=== PATIENT | female | born 1995 | race Hispanic/Latino ===

== ENCOUNTER 2021-11-26 10:30 | Emergency (ER) | payer SELFPAY ==
[2021-11-26 10:37] VITALS: BP 150/92; PULSE 70; RESP 18; TEMP 36.4; O2SAT 100
[2021-11-26 10:46] LABS: Glucose Point of Care 284 mg/dl (65-105)
--- NOTE | 2021-11-26 11:59 | PC.NURSE ---
EDP at bedside to assess pt.
--- NOTE | 2021-11-26 12:06 | ED.RECABL ---
HPI - Recheck/Abnormal Lab/Rx General Chief Complaint: Recheck/Abnormal Lab/Rx Stated Complaint: sent by PCP because A1C is high Time Seen by Provider: 11/26/21 11:04 History of Present Illness HPI narrative: 26-year-old female with a history of PCOS presents to the emergency room from her [employer]CRAFT MANAGER's office for further evaluation of elevated A1c. Patient states she was found to have an A1c of 11, and was told by her AIRCRAFT MANAGER that she could go into a diabetic coma at any minute. Patient denies polyuria or polydipsia. States that she was on metformin for PCOS up until 2 months ago when she abruptly stopped. No other complaints at this time Related Data Allergies Allergy/AdvReac Type Severity Reaction Status Date / Time No Known Allergies Allergy Verified 11/26/21 11:44 Review of Systems Review of Systems: CONSTITUTIONAL: Denies fever, chills, or sweats. EYES: Denies visual changes, redness, or discharge. ENT: Denies rhinorrhea, congestion, sore throat, or otalgia. CARDIOVASCULAR: Denies chest pain, palpitations, or edema. RESPIRATORY: Denies cough or dyspnea. GASTROINTESTINAL: Denies abdominal pain, nausea, vomiting, or diarrhea. GENITOURINARY: Denies dysuria or hematuria. SKIN: Denies rash or itching. MUSCULOSKELETAL: Denies back pain, joint pain, or myalgia. NEUROLOGIC: Denies headache, numbness, dizziness, or weakness. PSYCHIATRIC: Denies anxiety or depression. Exam Narrative: GENERAL: Well-appearing, well-nourished, no physical limitations, and in no acute distress. HEAD: Normocephalic, atraumatic. EYES: Conjunctivae normal, PERRLA and EOMI. CHEST: Clear to auscultation. No respiratory distress. No wheezes rales or rhonchi. No tenderness. HEART: Regular rate and rhythm. No murmur heard. Normal peripheral pulses. ABDOMEN: Soft, nontender, nondistended, normal active bowel sounds. EXTREMITIES: Normal range of motion. No edema. No clubbing or cyanosis SKIN: Warm, dry, no rash. No noted wounds NEURO: No focal deficits. Alert and oriented x3. MAEW. CN's II-XI intact bilaterally, normal gait PSYCH: Cooperative. Normal mood and affect. Course Vital Signs Vital signs: Vital Signs Temperature 36.4 C L 09/22/22 10:37 Pulse Rate 70 11/26/21 10:37 Respiratory Rate 18 11/26/21 10:37 Blood Pressure 150/92 H 11/26/21 10:37 Pulse Oximetry 100 11/26/21 10:37 Oxygen Delivery Room Air 11/26/21 10:37 Temperature 36.4 C L 11/26/21 10:37 Pulse Rate 70 11/26/21 10:37 Respiratory Rate 18 11/26/21 10:37 Blood Pressure 150/92 H 11/26/21 10:37 Pulse Oximetry 100 11/26/21 10:37 Oxygen Delivery Room Air 11/26/21 10:37 MDM - Recheck/Abnormal Lab/Rx Lab Data Result diagrams: 11/26/21 12:29 11/26/21 12:29 Labs: Lab Results 11/26/21 11/26/21 11/26/21 Range/Units 10:44 12:29 12:29 WBC 8.6 (4.5-10.0) K/mm3 RBC 4.86 (4.2-5.4) M/mm3 Hgb 13.6 (12.0-15.0) g/dL Hct 41.0 (37.0-47.0) % MCV 84.4 (80-100) fl MCH 28.0 (26-34) pg MCHC 33.2 (32-36) g/dl RDW 12.5 (11.5-14.5) % Plt Count 363 (150-375) k/mm3 MPV 9.3 (7.4-10.4) fl Immature Gran % (Auto) 0.3 (0-0.5) % Neut % (Auto) 62.3 (45.5-73.1) % Lymph % (Auto) 31.0 (18.3-44.2) % [place] % (Auto) 4.4 (2.6-8.5) % Eos % (Auto) 1.5 (0-4.4) % Baso % (Auto) 0.5 (0.2-1.2) % Lymph # (Auto) 2.68 (0.9-3.2) K/mm3 [place] # (Auto) 0.4 (0.1-0.6) K/mm3 Eos # (Auto) 0.1 (0-0.3) K/mm3 Baso # (Auto) 0.0 (0.0-0.1) K/mm3 Abs Immat Gran (auto) 0.03 (0.00-0.031) K/mm3 Absolute Neuts (auto) 5.4 (1.3-6.7) K/mm3 Absolute Nucleated RBC 0.0 (0.0-0.012) K/mm3 Nucleated RBC % 0.0 (0.0-0.2) % Sodium (137-145) mmol/L Potassium (3.4-5.0) mmol/L Chloride (98-107) mmol/L Carbon Dioxide (22-30) mmol/L Anion Gap (8-16) mmol/L BUN (7-17) mg/dL Creatinine (0.7-1.0) mg/dL Estim Creat Clear Calc ml/min Est
[2021-11-26] MEDS: SODIUM CHLORIDE 0.9% IV 1,000 ML 999 ML IV CONT (12:51)
[2021-11-26 12:57] LABS: Alanine Aminotransferase 28 U/L (6-35); Albumin Level 4.3 g/dL (3.5-5.1); Alkaline Phosphatase 77 U/L (38-126); Anion Gap 10 mmol/L (8-16); Aspartate Amino Transferase 25 U/L (14-36); Bilirubin,Total 0.7 mg/dL (0.2-1.3); Blood Urea Nitrogen 14 mg/dL (7-17); Calcium 8.9 mg/dL (8.4-10.2); Carbon Dioxide 23 mmol/L (22-30); Chloride 100 mmol/L (98-107); Estimated CRCL calculation 188 ml/min; Estimated Glomerular Filt Rate > 60; Glucose 264 mg/dL (65-110); Potassium 4.2 mmol/L (3.4-5.0); Sodium 133 mmol/L (137-145)
[2021-11-26 13:17] LABS: Basophils Percent Auto 0.5 % (0.2-1.2); Eosinophils Absolute Auto 0.1 K/mm3 (0-0.3); Eosinophils Percent Auto 1.5 % (0-4.4); Hemoglobin 13.6 g/dL (12.0-15.0); Immature Granulocyte Absolute 0.03 K/mm3 (0.00-0.031); Immature Granulocyte Percent A 0.3 % (0-0.5); Lymphocytes Absolute Auto 2.68 K/mm3 (0.9-3.2); Mean Corpuscular HGB Conc 33.2 g/dl (32-36); Mean Corpuscular Volume 84.4 fl (80-100); Mean Platelet Volume 9.3 fl (7.4-10.4); Monocytes Absolute Auto 0.4 K/mm3 (0.1-0.6); Monocytes Percent Auto 4.4 % (2.6-8.5); Neutrophils Absolute Auto 5.4 K/mm3 (1.3-6.7); Neutrophils Percent Auto 62.3 % (45.5-73.1); Platelet Count Result 363 k/mm3 (150-375); Red Blood Count 4.86 M/mm3 (4.2-5.4); Red Cell Distribution Width 12.5 % (11.5-14.5); White Blood Count 8.6 K/mm3 (4.5-10.0)
[2021-11-26 13:24] LABS: Mucus Urine Rare /lpf; RBC Urine 21-50 /hpf (0-2); Squamous Epithelial Cell Urine Moderate /hpf (Few)
[2021-11-26 13:25] LABS: Add Urine Microscopic? YES; Appearance Urine Cloudy (Clear); Bilirubin Urine Negative (Negative); Blood Urine Negative (Negative); Color Urine Yellow (Yellow); Glucose Urine UA 2+ mg/dL (Negative); Ketones Urine 2+ mg/dL (Negative); Leukocyte Esterase Ur Negative LEU/UL (Negative); Nitrate Urine Negative (Negative); Protein Urine Negative (Negative); Urobilinogen Urine 0.2 mg/dL (<2.0); pH Urine 5.5 (5.0-9.0)
[2021-11-26 13:26] LABS: Bacteria Urine Trace /hpf
[2021-11-26 13:41] LABS: Hemoglobin A1C 10.8 % (<5.7)
[2021-11-26 14:08] VITALS: BP 135/84; PULSE 59; RESP 16; TEMP 36.9; O2SAT 100
== END 2021-11-26 14:10 | disposition home or self-care (01) ==
PROVIDERS: Emergency Provider Nurse Practitioner Family; PCP Nurse Practitioner
DX: E11.65 Type 2 diabetes mellitus with hyperglycemia (principal); E28.2 Polycystic ovarian syndrome
CPT/HCPCS: 36415; 80053; 81001; 82948; 83036; 84443; 85025; 87077; 87086; 87088; 96360; 99283; J7030

== ENCOUNTER 2022-04-15 16:42 | Outpatient (CLI) | payer SELFPAY | END 2022-04-15 16:43 | disposition home or self-care (01) | LOC: ANHLAB 16:45 | PROVIDERS: PCP Nurse Practitioner; Visit Provider Obstetrics & Gynecology | DX: O26.859 Spotting complicating pregnancy, unspecified trimester (principal); Z3A.00 Weeks of gestation of pregnancy not specified | CPT/HCPCS: 36415; 85461; 86850; 86900; 86901 ==

== ENCOUNTER 2022-06-09 11:50 | Outpatient (CLI) | payer SELFPAY ==
--- NOTE | 2022-06-09 | ECG_ITS ---
Measurements Intervals Vincent Rate: 75 P: 26 NV: 169 QRS: 60 QRSD: 86 T: -5 QT: 405 QTc: 455 Interpretive Statements SINUS RHYTHM NONSPECIFIC T-WAVE ABNORMALITY ABNORMAL ECG NO PREVIOUS ECG AVAILABLE FOR COMPARISON Electronically Signed On 06-09-2022 13:53:57 CDT by Valentin Hernandez M.D.
== END 2022-06-09 11:51 | disposition home or self-care (01) ==
LOC: ANHLAB 11:56 → ANHCARD 11:59
PROVIDERS: PCP Nurse Practitioner
DX: O24.119 Pre-existing type 2 diabetes mellitus, in pregnancy, unspecified trimester (principal); Z3A.00 Weeks of gestation of pregnancy not specified; R94.31 Abnormal electrocardiogram [ECG] [EKG]
CPT/HCPCS: 93005

== ENCOUNTER 2022-06-28 14:30 | Outpatient (RCR) | payer SELFPAY ==
[2022-05-24 02:10] VITALS: BMI 37.9
[2022-06-14 14:30] VITALS: BMI 37.5
[2022-06-14 14:35] VITALS: BMI 37.5
[2022-06-28 14:23] VITALS: BMI 38.2
[2022-06-28 14:24] VITALS: BMI 38.2
== END 2022-06-28 16:06 | disposition home or self-care (01) ==
LOC: ANHDMC 14:30
PROVIDERS: PCP Nurse Practitioner
DX: O24.112 Pre-existing type 2 diabetes mellitus, in pregnancy, second trimester (principal); Z3A.00 Weeks of gestation of pregnancy not specified; Z71.3 Dietary counseling and surveillance
CPT/HCPCS: 97802; 97803

== ENCOUNTER 2022-10-27 12:26 | Outpatient (CLI) | payer OTHER, SELFPAY ==
[2022-10-27] VITALS (40 sets, daily range): BP systolic 111–133; BP diastolic 57–88; PULSE 62–120; O2SAT 99–100; BMI 43.1
[2022-10-27 13:07] LABS: Basophils Percent Auto 0.2 % (0.2-1.2); Eosinophils Absolute Auto 0.1 K/mm3 (0-0.3); Eosinophils Percent Auto 0.9 % (0-4.4); Hematocrit 31.2 % (37.0-47.0); Immature Granulocyte Absolute 0.05 K/mm3 (0.00-0.031); Immature Granulocyte Percent A 0.4 % (0-0.5); Lymphocytes Absolute Auto 1.94 K/mm3 (0.9-3.2); Lymphocytes Percent Auto 17.2 % (18.3-44.2); Mean Corpuscular HGB Conc 32.1 g/dl (32-36); Mean Corpuscular Hemoglobin 26.7 pg (26-34); Mean Corpuscular Volume 83.4 fl (80-100); Mean Platelet Volume 9.8 fl (7.4-10.4); Monocytes Absolute Auto 0.5 K/mm3 (0.1-0.6); Monocytes Percent Auto 4.6 % (2.6-8.5); Neutrophils Absolute Auto 8.7 K/mm3 (1.3-6.7); Neutrophils Percent Auto 76.7 % (45.5-73.1); Platelet Count Result 411 k/mm3 (150-375); Red Blood Count 3.74 M/mm3 (4.2-5.4); Red Cell Distribution Width 13.1 % (11.5-14.5); White Blood Count 11.3 K/mm3 (4.5-10.0)
[2022-10-27 13:18] LABS: Alanine Aminotransferase 18 U/L (6-35); Albumin Level 3.2 g/dL (3.5-5.1); Alkaline Phosphatase 164 U/L (38-126); Anion Gap 4 mmol/L (8-16); Aspartate Amino Transferase 24 U/L (14-36); Bilirubin,Total 0.2 mg/dL (0.2-1.3); Blood Urea Nitrogen 17 mg/dL (7-17); Calcium 8.7 mg/dL (8.4-10.2); Carbon Dioxide 18 mmol/L (22-30); Chloride 108 mmol/L (98-107); Estimated CRCL calculation 172 ml/min; Estimated Glomerular Filt Rate > 60; Glucose 97 mg/dL (65-110); Potassium 4.3 mmol/L (3.4-5.0); Sodium 130 mmol/L (137-145); Uric Acid 6.1 mg/dL (2.5-7.5)
[2022-10-27 13:22] LABS: Appearance Urine Turbid (Clear); Bacteria Urine 4+ /hpf; Bilirubin Urine Negative (Negative); Blood Urine Negative (Negative); Color Urine Yellow (Yellow); Glucose Urine UA Negative (Negative); Granular Casts Urine Present /lpf; Ketones Urine Negative (Negative); Leukocyte Esterase Ur 1+ LEU/UL (NEGATIVE); Nitrate Urine Negative (Negative); Protein Urine 1+ mg/dL (Negative); RBC Urine 0-2 /hpf (0-2); Specific Grav Ur 1.019 (1.001-1.035); Squamous Epithelial Cell Urine Many /hpf (Few); WBC Urine 51-100 /hpf (0-3); pH Urine 6.5 (5.0-9.0)
[2022-10-27 13:25] LABS: Add Urine Microscopic? YES
[2022-10-27 14:44] LABS: Total Protein Urine Random 11 mg/dL; Ur Ttl Prot Creatinine Ratio 0.12 mg/mg (0-0.20)
--- NOTE | 2022-10-27 14:55 | PC.NURSE ---
Jaydon OLIVARESM informed of reactive NST, BP's, and lab results. OK to discharge to home to do 24 hr urine collection for TP. Office will call with date/orders for induction after they check with Dr. Rajput what day he is available.
--- NOTE | 2022-10-27 15:05 | PC.NURSE ---
Dr. Rajput's office called back with date and orders for IOL on 10/31/22 at 1700. Pt to keep office appointment tomorrow to have GBS culture obtained.
[2022-10-27 15:42] LABS: Glucose Point of Care 119 mg/dl (65-105)
== END 2022-10-27 15:38 | disposition home or self-care (01) ==
LOC: ANHOBOP 12:31 → ANHOBPP 12:31
PROVIDERS: PCP Emergency Medicine; Visit Provider Obstetrics & Gynecology
DX: O13.9 Gestational [pregnancy-induced] hypertension without significant proteinuria, unspecified trimester (principal)
CPT/HCPCS: 36415; 59025; 80053; 81001; 82570; 82948; 84156; 84550; 85025; 87086; 87088; 99199

== ENCOUNTER 2022-10-28 18:10 | Outpatient (NON) | payer OTHER, SELFPAY ==
[2022-10-28 19:20] LABS: Collection Time Urine 24 HOURS
[2022-10-28 19:22] LABS: Patient Weight 292 Lbs; Total Volume 24 Hour Urine 2550 ml
[2022-10-28 19:32] LABS: Creatinine Urine 68.2 mg/dL
[2022-10-30 06:46] LABS: Specific Gravity Ur 1.015
[2022-10-30 06:51] LABS: Total Protein Urine 24 Hr 178 mg/24hr (28-141); Total Protein Urine Random 7 mg/dL
== END 2022-10-28 18:11 | disposition home or self-care (01) ==
LOC: ANHOBOP 18:21
PROVIDERS: PCP Emergency Medicine; Visit Provider Obstetrics & Gynecology
DX: Z34.90 Encounter for supervision of normal pregnancy, unspecified, unspecified trimester (principal); Z3A.00 Weeks of gestation of pregnancy not specified
CPT/HCPCS: 81050; 82575; 84156

== ENCOUNTER 2022-10-31 16:44 | Inpatient (IN) | payer OTHER, SELFPAY ==
[2022-10-31] VITALS (11 sets, daily range): BP systolic 111–135; BP diastolic 64–85; PULSE 63–84; TEMP 36.4–36.9; BMI 43.2
--- NOTE | 2022-10-31 17:10 | LDADM ---
This patient, Rose Marie, was admitted to Labor/Delivery/Recovery 106 on 10/31/22 at 16:44. Plans for labor, pain management and were discussed with patient. Patient/family oriented to hospital policies and general routines including ID bracelet, bed and alarms, visiting hours, pain management, procedures, bathroom and other care routines, personal items, smoking policy, room service/diet and guest tray routines, security routines, and visiting hours. Patient/Family are encouraged to report perceived risks to care and to ask questions if they do not understand what they are told or what they should do. See OBIX for further documentation.
[2022-10-31 17:36] LABS: Basophils Percent Auto 0.4 % (0.2-1.2); Eosinophils Absolute Auto 0.1 K/mm3 (0-0.3); Eosinophils Percent Auto 1.3 % (0-4.4); Hematocrit 29.6 % (37.0-47.0); Hemoglobin 9.5 g/dL (12.0-15.0); Immature Granulocyte Absolute 0.06 K/mm3 (0.00-0.031); Immature Granulocyte Percent A 0.5 % (0-0.5); Lymphocytes Absolute Auto 2.25 K/mm3 (0.9-3.2); Lymphocytes Percent Auto 20.4 % (18.3-44.2); Mean Corpuscular HGB Conc 32.1 g/dl (32-36); Mean Corpuscular Hemoglobin 26.3 pg (26-34); Monocytes Absolute Auto 0.6 K/mm3 (0.1-0.6); Monocytes Percent Auto 5.2 % (2.6-8.5); Neutrophils Percent Auto 72.2 % (45.5-73.1); Platelet Count Result 408 k/mm3 (150-375); Red Blood Count 3.61 M/mm3 (4.2-5.4)
[2022-10-31] MEDS: DINOPROSTONE 10 MG VAG INSERT VAGINAL (17:42)
[2022-10-31 17:56] LABS: Glucose Point of Care 118 mg/dl (65-105)
[2022-10-31] MEDS: INSULIN HUMAN NPH (*BKC) 100 UNITS/ML 85 UNITS SUB-Q (21:09)
[2022-10-31 21:17] LABS: Glucose Point of Care 136 mg/dl (65-105)
[2022-11-01] VITALS (39 sets, daily range): BP systolic 105–150; BP diastolic 66–130; PULSE 63–96; TEMP 36.1–36.6
--- NOTE | 2022-11-01 01:50 | WPDANESEPP ---
Anes - Eval Pre Procedure Procedure: Labor epidural Date/Time: 11/01/22 01:50 Surgeon: Labor epidural Preop Diagnosis: Abdominal pain with contractions Pre Op Diagnosis: IOL Patient Data Age: 27 Gender: F Height: 1.75 m Weight: 133 kg Last Vital Signs Temp 97.8 F 11/01/22 00:48 Pulse 63 11/01/22 00:49 BP 113/69 11/01/22 00:49 O2 Del Method Room Air 10/31/22 17:09 Allergies Allergy/AdvReac Type Severity Reaction Status Date / Time No Known Allergies Allergy Verified 10/31/22 17:19 Home Medications Medication Instructions Recorded Confirmed Type aspirin 81 mg tablet 81 mg PO DAILY 10/22/22 10/31/22 History insulin lispro 100 unit/mL 32 unit subcut QACBREAK 10/22/22 10/31/22 History subcutaneous pen vit#24-iron amino acid 1 tablet PO DAILY 10/22/22 10/31/22 History chelat-folic acid 30 mg-975 mcg tablet insulin NPH isoph U-100 human 100 56 unit subcut QACBREAK 10/27/22 10/31/22 History unit/mL (3 mL) subcutaneous pen insulin NPH isoph U-100 human 100 85 unit subcut HS 10/27/22 10/31/22 History unit/mL (3 mL) subcutaneous pen insulin lispro 100 unit/mL 36 unit subcut QACLUNCH 10/27/22 10/31/22 History subcutaneous pen insulin lispro 100 unit/mL 72 unit subcut QACDINNER 10/27/22 10/31/22 History subcutaneous pen Laboratory Tests 10/31/22 10/31/22 10/31/22 17:27 17:53 21:07 WBC 11.0 H K/mm3 (4.5-10.0) RBC 3.61 L M/mm3 (4.2-5.4) Hgb 9.5 L g/dL (12.0-15.0) Hct 29.6 L % (37.0-47.0) MCV 82.0 fl (80-100) MCH 26.3 pg (26-34) MCHC 32.1 g/dl (32-36) RDW 13.0 % (11.5-14.5) Plt Count 408 H k/mm3 (150-375) MPV 10.0 fl (7.4-10.4) Immature Gran % (Auto) 0.5 % (0-0.5) Neut % (Auto) 72.2 % (45.5-73.1) Lymph % (Auto) 20.4 % (18.3-44.2) [place] % (Auto) 5.2 % (2.6-8.5) Eos % (Auto) 1.3 % (0-4.4) Baso % (Auto) 0.4 % (0.2-1.2) Lymph # (Auto) 2.25 K/mm3 (0.9-3.2) [place] # (Auto) 0.6 K/mm3 (0.1-0.6) Eos # (Auto) 0.1 K/mm3 (0-0.3) Baso # (Auto) 0.0 K/mm3 (0.0-0.1) Abs Immat Gran (auto) 0.06 H K/mm3 (0.00-0.031) Absolute Neuts (auto) 8.0 H K/mm3 (1.3-6.7) Absolute Nucleated RBC 0.0 K/mm3 (0.0-0.012) Nucleated RBC % 0.0 % (0.0-0.2) POC Capillary Glucose 118 H mg/dl 136 H mg/dl (65-105) (65-105) RPR Pending Blood Type A Positive Antibody Screen Negative : gestational age HCG: positive Patient hx anesthesia problems: none Family hx anesthesia problems: none Results Review: All pre-operative results and documents have been reviewed as part of the pre-operative evaluation. [facility] Past Medical History Medical History Diabetes in Morbid obesity and not yet delivered Family History Family History Grandparent Diabetes mellitus Enlarged heart Sibling Asthma Sibling Asthma Grandparent Malignant neoplasm of prostate Social History Social History Smoking status: Never smoker Substance use: never Lack of Transportation: No Lack of Food: Never True Current Housing: I Have Housing Concerned About Future Housing: No Difficulty Paying Gas/Electric Bills: No Difficulty Paying for Meds: No Currently Unemployed: YES Education: High School Diploma/GED Difficulty w/ Childcare or Family Care: No Spiritual care concerns: No Exam Day of Procedure 11/01/22 01:50 Patient weight: morbidly obese Airway: Mallampati scale class II
[2022-11-01] MEDS: LACTATED RINGERS 1,000 ML 125 ML IV CONT ×2 (07:13→17:11)
[2022-11-01] MEDS: OXYTOCIN 30 UNITS/NS 500 ML 30 UNITS/500 ML BAG 6 UNITS IV CONT (07:13)
[2022-11-01 07:22] LABS: Glucose Point of Care 80 mg/dl (65-105)
--- NOTE | 2022-11-01 07:37 | WPDHPUPDATE1 ---
History and Physical Update Update Date/Time: 11/01/22 07:37 27-year-old prime at but 37 weeks with with poorly controlled diabetes, induction of labor. Very unfavorable cervix. Starting Pitocin, artificial rupture membranes could not be performed. History and Physical has been reviewed, including an updated exam of the patient. There are NO changes in the patient's condition. Risks, benefits, and alternatives have been discussed and questions answered. Patient agrees to proceed with procedure.
[2022-11-01] MEDS: INSULIN ASPART (*BKC) 100 UNITS/ML 16 UNITS SUB-Q (09:01)
[2022-11-01] MEDS: INSULIN HUMAN NPH (*BKC) 100 UNITS/ML 28 UNITS SUB-Q (09:02)
[2022-11-01 10:37] LABS: Glucose Point of Care 115 mg/dl (65-105)
[2022-11-01 10:56] LABS: Rapid Plasma Reagin Non-Reactive (NonReactive)
[2022-11-01 13:31] LABS: Glucose Point of Care 71 mg/dl (65-105)
[2022-11-01 18:16] LABS: Glucose Point of Care 105 mg/dl (65-105)
--- NOTE | 2022-11-01 18:26 | PM.OBPNVD ---
OB - PN: Subj Subjective Date/time seen: 11/01/22 18:26 Interval history: AROM performed - clear liquid, some cervical change, 1.5/40/-4 discussed poor likelihood of vaginal give station and cervical exam. OB - PN: Obj Data Labs 10/31/22 17:27 Labs: Laboratory Results - last 24 hr 10/31/22 10/31/22 11/01/22 17:27 21:07 07:19 POC Capillary Glucose 136 H 80 RPR Non-reactive Blood Type A Positive Antibody Screen Negative 11/01/22 11/01/22 11/01/22 10:34 13:25 18:13 POC Capillary Glucose 115 H 71 105 RPR Blood Type Antibody Screen OB - PN A/P Time Spent With Patient Time: Total time spent is greater than 50% in coordination of care (as documented) at patient's floor/unit and/or counseling patient:
[2022-11-01 21:32] LABS: Glucose Point of Care 84 mg/dl (65-105)
[2022-11-02] VITALS (65 sets, daily range): BP systolic 100–141; BP diastolic 53–88; PULSE 59–159; RESP 12–20; TEMP 36.3–37.2; O2SAT 97–100; BMI 38.0; BMI 43.2
[2022-11-02] MEDS: LACTATED RINGERS 1,000 ML 125 ML IV CONT (01:37)
[2022-11-02 06:33] LABS: Glucose Point of Care 70 mg/dl (65-105)
[2022-11-02] MEDS: AZITHROMYCIN 500 MG/NS 250 ML 500 MG/250 ML BAG 250 MG IVPB (08:39)
--- NOTE | 2022-11-02 08:47 | WPDANESEPPF ---
Anes - Initial Pre Proc Eval Procedure: Operation Date: 11/02/22 09:00 Proposed Procedures p Section - Lily Rajput MD Date/Time: 11/02/22 08:47 Surgeon: Lily Rajput MD Pre Op Diagnosis: IOL Patient Data Age: 27 Gender: F Height: 1.75 m Weight: 133 kg Last Vital Signs Temp 36.8 C 11/02/22 06:25 Pulse 67 11/02/22 08:30 BP 123/69 11/02/22 08:30 O2 Del Method Room Air 10/31/22 17:09 Allergies Allergy/AdvReac Type Severity Reaction Status Date / Time No Known Allergies Allergy Verified 10/31/22 17:19 Home Medications Medication Instructions Recorded Confirmed Type aspirin 81 mg tablet 81 mg PO DAILY 10/22/22 10/31/22 History insulin lispro 100 unit/mL 32 unit subcut QACBREAK 10/22/22 10/31/22 History subcutaneous pen vit#24-iron amino acid 1 tablet PO DAILY 10/22/22 10/31/22 History chelat-folic acid 30 mg-975 mcg tablet insulin NPH isoph U-100 human 100 56 unit subcut QACBREAK 10/27/22 10/31/22 History unit/mL (3 mL) subcutaneous pen insulin NPH isoph U-100 human 100 85 unit subcut HS 10/27/22 10/31/22 History unit/mL (3 mL) subcutaneous pen insulin lispro 100 unit/mL 36 unit subcut QACLUNCH 10/27/22 10/31/22 History subcutaneous pen insulin lispro 100 unit/mL 72 unit subcut QACDINNER 10/27/22 10/31/22 History subcutaneous pen Laboratory Tests 10/31/22 11/01/22 11/01/22 17:27 10:34 13:25 POC Capillary Glucose 115 H mg/dl 71 mg/dl (65-105) (65-105) RPR Non-reactive (NonReactive) 11/01/22 11/01/22 11/02/22 18:13 21:28 06:27 POC Capillary Glucose 105 mg/dl 84 mg/dl 70 mg/dl (65-105) (65-105) (65-105) RPR : gestational age HCG: positive Patient hx anesthesia problems: none Family hx anesthesia problems: none Results Review: All pre-operative results and documents have been reviewed as part of the pre-operative evaluation. [facility] Past Medical History Medical History Diabetes in Morbid obesity and not yet delivered Family History Family History Grandparent Diabetes mellitus Enlarged heart Sibling Asthma Sibling Asthma Grandparent Malignant neoplasm of prostate Social History Social History Smoking status: Never smoker Substance use: never Lack of Transportation: No Lack of Food: Never True Current Housing: I Have Housing Concerned About Future Housing: No Difficulty Paying Gas/Electric Bills: No Difficulty Paying for Meds: No Currently Unemployed: YES Education: High School Diploma/GED Difficulty w/ Childcare or Family Care: No Spiritual care concerns: No Anes - Eval Final PreProcedure Day of Procedure 11/02/22 08:47 Patient weight: obese Heart: regular rate and rhythm Lungs: clear to auscultation and normal air movement Airway: Mallampati scale class II Neurological: alert and oriented Last oral intake: >/= 8 hours ASA classification: III Emergent: no Anesthetic plan: proceed Anesthesia type and monitoring: regional spinal and standard monitoring Results Review: All pre-operative results and documents have been reviewed as part of the pre-operative evaluation. Informed Consent: The patient's anesthetic plan and its attendant risks and benefits were discussed with the patient/family/POA. Questions were solicited and answers provided to the satisfaction of the patient/family/POA.
--- NOTE | 2022-11-02 08:48 | PM.IMHP ---
H&P: HPI History of Present Illness Date/Time: 11/02/22 08:48 Chief Complaint: Term Narrative: 27-year-old 1 at 37 weeks gestation with gestational diabetes with questionable control. She was induced. She has failed to progress in 24 hours and is now requesting delivery. She understands has risk. She understands there is may occur that resulted hospitalization, more surgery, and severe illness. She understands there is risk of hemorrhage and infection. She denies any nausea, vomiting, fever, chills. Denies any chest pain or shortness of breath. Review of Systems Review of Systems: All systems reviewed & are unremarkable except as noted in HPI and below Constitutional: Constitutional: Denies chills, Denies fatigue, Denies fever(s) and Denies weakness Eyes: Eyes: Denies blurry vision, Denies change in vision, Denies loss of peripheral vision, Denies loss of vision, Denies other visual disturbances and Denies eye pain ENT: Denies vertigo, Denies dizziness, Denies hearing loss, Denies mouth pain, Denies nasal obstruction, Denies neck mass and Denies neck pain Cardiovascular: Cardiovascular: Denies chest pain, Denies diaphoresis, Denies syncope, Denies leg edema and Denies dyspnea Respiratory: Respiratory: Denies chest congestion, Denies cough, Denies hemoptysis, Denies dyspnea and Denies wheezing Gastrointestinal: Gastrointestinal: Denies abdominal pain, Denies constipation, Denies diarrhea, Denies nausea and Denies vomiting Genitourinary: Genitourinary: Denies hematuria, Denies change in libido, Denies nocturia, Denies genital lesions, Denies flank pain and Denies urinary urgency Musculoskeletal: Musculoskeletal: Denies abnormal gait, Denies back pain, Denies myalgias, Denies arthralgias, Denies joint swelling, Denies muscle weakness and Denies neck pain Integumentary/Breasts: Skin/Breast: Denies swelling, Denies breast pain, Denies breast mass, Denies dry skin, Denies nipple discharge, Denies unusual bruising and Denies jaundice Neurologic: Denies Neuro-related abnormal movements, Denies Abnormal speech present, Denies abnormal gait, Denies behavioral changes, Denies confusion, Denies vertigo, Denies dizziness, Denies syncope, Denies loss of vision, Denies memory loss, Denies convulsions and Denies weakness Psychiatric: Psychiatric: Denies abnormal sleep pattern, Denies behavioral changes, Denies change in libido, Denies confusion, Denies depression, Denies anhedonia and Denies memory loss Endocrine: Endocrine: Reports no additional endocrine complaints, Denies change in libido and Denies fatigue Hematologic/Lymphatic: Hematologic/Lymphatic: Reports no additional hematologic/lymphatic complaints Allergic/Immunologic: Allergic/Immunologic: Reports no additional allergic/immunologic complaints and Denies wheezing PMFSH Past Medical History Medical History Diabetes in Morbid obesity and not yet delivered Family History Family History Grandparent Diabetes mellitus Enlarged heart Sibling Asthma Sibling Asthma Grandparent Malignant neoplasm of prostate Social History Social History Smoking status: Never smoker Substance use: never Lack of Transportation: No Lack of Food: Never True Current Housing: I Have Housing Concerned About Future Housing: No Difficulty Paying Gas/Electric Bills: No Difficulty Paying for Meds: No Currently Unemployed: YES Education: High School Diploma/GED Difficulty w/ Childcare or Family Care: No Spiritual care concerns: No Meds Home Medications and Allergies Home Medications Medication Instructions Recorded Confirmed Type aspirin 81 mg tablet 81 mg PO DAILY 10/22/22 10/31/22 History insulin lispro 100 unit/mL 32 unit subcut QACBREAK 10/22/22 08
[2022-11-02] MEDS: ceFAZolin 3 GM/D5W 100 ML 100 ML IVPB (09:38)
--- NOTE | 2022-11-02 10:25 | W.PM.PROC2 ---
Procedure Note - Detailed Date of Procedure 11/02/22 Pre-op Diagnosis IOL, failure to progress Post-op Diagnosis Same Procedure Performed Low-transverse section Surgeon Lily Rajput MD Anesthesia Spinal Indications failure to progress Findings Normal gestational maternal anatomy, average size infant, normal Apgars. Description of Procedure The patient was taken the operating room. She was prepped and draped in dorsal supine position with a leftward tilt. This was done after spinal anesthetic was applied. A low-transverse skin incision was made and carried down till of the fascia with the knife. The fascial incision was made with the knife. The fascial incision was extended laterally with Fitzgerald scissors. The fascia was tented upward superiorly and inferiorly the rectus muscles were dissected off bluntly. The rectus muscles were the midline. The preperitoneal fat and peritoneum were dissected open bluntly at the superior aspect of the rectus muscles. The peritoneal incision was extended superior and inferior with good position of bladder. The uterine incision was made with a scalpel down to the level of the amniotic cavity. The amniotic cavity was entered bluntly. The infant was delivered. The cord was clamped and cut and the infant was handed off to waiting pediatric staff. Cord bloods were obtained. The placenta was removed manually. The uterus was exteriorized. The uterus was cleared of all clots, debris and membranes. The uterus was closed in 0 Vicryl running lock fashion. An imbricating over a was placed along the incision line as well. The uterus was returned to the abdomen. The gutters were cleared of all clots and debris. The fascia was closed with 0 Vicryl running fashion. The subcutaneous tissue was irrigated pinpoint bleeders were cauterized. The skin was closed with subcuticular absorbable valeria. The skin incision line was covered with glue. The patient tolerated the procedure well. She has taken recovery room in stable condition. Sponge lap and needle counts were correct x2. Estimated Blood Loss -690.0 Urine Output 200 Complications No immediate complications Condition Stable Disposition PACU
[2022-11-02] MEDS: OXYTOCIN 30 UNITS/NS 500 ML 30 UNITS/500 ML BAG 125 UNITS IV CONT (10:54)
[2022-11-02] MEDS: KCL 20 MEQ/D5/0.45% SOD CHL 1,000 ML 125 ML IV CONT (15:20)
[2022-11-02 15:21] LABS: Glucose Point of Care 57 mg/dl (65-105)
[2022-11-02 15:21] LABS: Glucose Point of Care 47 mg/dl (65-105)
[2022-11-02 16:09] LABS: Glucose Point of Care 92 mg/dl (65-105)
[2022-11-02] MEDS: POLYSACCHARIDE IRON COMPLEX 150 MG CAPSULE PO (20:50)
[2022-11-03 05:04] LABS: Basophils Percent Auto 0.3 % (0.2-1.2); Eosinophils Absolute Auto 0.1 K/mm3 (0-0.3); Eosinophils Percent Auto 0.5 % (0-4.4); Hematocrit 24.8 % (37.0-47.0); Hemoglobin 8.1 g/dL (12.0-15.0); Immature Granulocyte Absolute 0.11 K/mm3 (0.00-0.031); Immature Granulocyte Percent A 0.8 % (0-0.5); Lymphocytes Absolute Auto 1.91 K/mm3 (0.9-3.2); Lymphocytes Percent Auto 13.2 % (18.3-44.2); Mean Corpuscular HGB Conc 32.7 g/dl (32-36); Mean Corpuscular Hemoglobin 27.4 pg (26-34); Mean Corpuscular Volume 83.8 fl (80-100); Monocytes Absolute Auto 0.7 K/mm3 (0.1-0.6); Monocytes Percent Auto 5.1 % (2.6-8.5); Neutrophils Absolute Auto 11.6 K/mm3 (1.3-6.7); Neutrophils Percent Auto 80.1 % (45.5-73.1); Platelet Count Result 366 k/mm3 (150-375); Red Blood Count 2.96 M/mm3 (4.2-5.4); Red Cell Distribution Width 13.3 % (11.5-14.5); White Blood Count 14.4 K/mm3 (4.5-10.0)
[2022-11-03] MEDS: IBUPROFEN 600 MG TABLET PO ×3 (05:23→17:30)
[2022-11-03] MEDS: HYDROcodone/acetaminophen (*CRX) 10-325 MG TABLET 1 TAB PO ×3 (05:23→15:00)
[2022-11-03 07:40] VITALS: BP 116/60; PULSE 78; RESP 18; TEMP 36.6; O2SAT 98
--- NOTE | 2022-11-03 07:40 | PM.OBPNVD ---
OB - PN: Subj Subjective Date/time seen: 11/03/22 07:40 Interval history: s/p section post op day 1 flatus not present doing well no complaints OB - PN: Obj Data Labs 11/03/22 04:20 Labs: Laboratory Results - last 24 hr 11/02/22 11/02/22 11/02/22 15:16 15:18 16:00 WBC RBC Hgb Hct MCV MCH MCHC RDW Plt Count MPV Immature Gran % (Auto) Neut % (Auto) Lymph % (Auto) [place] % (Auto) Eos % (Auto) Baso % (Auto) Lymph # (Auto) [place] # (Auto) Eos # (Auto) Baso # (Auto) Abs Immat Gran (auto) Absolute Neuts (auto) Absolute Nucleated RBC Nucleated RBC % POC Capillary Glucose 47 L* 57 L* 92 11/03/22 04:20 WBC 14.4 H RBC 2.96 L Hgb 8.1 L Hct 24.8 L MCV 83.8 MCH 27.4 MCHC 32.7 RDW 13.3 Plt Count 366 MPV 10.0 Immature Gran % (Auto) 0.8 H Neut % (Auto) 80.1 H Lymph % (Auto) 13.2 L [place] % (Auto) 5.1 Eos % (Auto) 0.5 Baso % (Auto) 0.3 Lymph # (Auto) 1.91 [place] # (Auto) 0.7 H Eos # (Auto) 0.1 Baso # (Auto) 0.0 Abs Immat Gran (auto) 0.11 H Absolute Neuts (auto) 11.6 H Absolute Nucleated RBC 0.0 Nucleated RBC % 0.0 POC Capillary Glucose OB - PN A/P Time Spent With Patient Time: Total time spent is greater than 50% in coordination of care (as documented) at patient's floor/unit and/or counseling patient: Review of Systems Review of Systems: All systems reviewed & are unremarkable except as noted in HPI and below Exam Const: General: cooperative, healthy appearing and comfortable Resp: Effort & Inspection: normal respiratory effort Cardio: Rate: regular rate Rhythm: regular rhythm GI: Other: incision CDI Skin: General skin exam: normal color Neuro: General: patient oriented x3 Extrem: Right lower extremity: normal to inspection Left lower extremity: normal to inspection Psych: Appearance: grossly normal
[2022-11-03] MEDS: MULTIVIT/MIN/PREN/FOL AC/IRON TABLET 1 TAB PO (08:45)
[2022-11-03] MEDS: metFORMIN HCL 500 MG TABLET PO (08:45)
[2022-11-03] MEDS: DOCUSATE SODIUM 100 MG CAPSULE PO ×2 (08:45→17:30)
[2022-11-03 09:03] LABS: Glucose Point of Care 89 mg/dl (65-105)
--- NOTE | 2022-11-03 10:23 | WPDANLDNPN2 ---
Anes-Prog Note L&D-Neuraxial Date/Time: 11/03/22 10:23 Patient feedback: Patient satisfied with post-operative pain management.
--- NOTE | 2022-11-03 10:23 | WPDANLDPN2 ---
Anes-Prog Note L&D Date/Time: 11/03/22 10:23 Neuro status: Neuro function grossly intact. Cardiovascular status: normal Respiratory status: normal Airway patency: baseline Mental status: baseline Post-Op hydration status: normal Vital Signs: Last Vital Signs Temp 36.6 C 11/03/22 07:40 Pulse 78 11/03/22 07:40 Resp 18 11/03/22 07:40 BP 116/60 11/03/22 07:40 Pulse Ox 98 11/03/22 07:40 O2 Del Method Room Air 11/02/22 20:05 Pain score (VAS): 0 I/O: Intake & Output 11/02/22 11/03/22 11/03/22 23:59 07:59 15:59 Intake Total 1000 2000 Output Total 1000 2800 Balance 0 -800 Post-procedural complaints: none Patient feedback: Patient satisfied with anesthetic care.
[2022-11-03] MEDS: SIMETHICONE 80 MG TAB.CHEW PO ×2 (11:00→17:30)
[2022-11-03 14:50] LABS: Glucose Point of Care 86 mg/dl (65-105)
[2022-11-03] MEDS: POLYSACCHARIDE IRON COMPLEX 150 MG CAPSULE PO (17:30)
[2022-11-03] MEDS: HYDROcodone/acetaminophen (*CRX) 5-325 MG TABLET 1 TAB PO (17:30)
[2022-11-03 20:10] VITALS: BP 120/64; PULSE 77; RESP 18; TEMP 37.3; O2SAT 98
[2022-11-04] MEDS: HYDROcodone/acetaminophen (*CRX) 5-325 MG TABLET 1 TAB PO (07:20)
[2022-11-04] MEDS: IBUPROFEN 600 MG TABLET PO (07:20)
[2022-11-04 07:30] LABS: Glucose Point of Care 116 mg/dl (65-105)
[2022-11-04 08:10] VITALS: BP 111/70; PULSE 77; RESP 18; TEMP 36.8; O2SAT 98
--- NOTE | 2022-11-04 08:15 | PM.GYNPNOP ---
PET CARE ASSOCIATE - A/P Postoperative Procedures: Procedures Operation Date: 11/02/22 09:00 Actual Procedure Side Surgeon p Section Lily Rajput MD Postoperative day: 1 Postoperative status: doing well Postoperative plan: see orders Time Spent With Patient Time: Total time spent is greater than 50% in coordination of care (as documented) at patient's floor/unit and/or counseling patient: Time with patient: less than 15 minutes PET CARE ASSOCIATE- PN:Subj Post-Op Subjective Date/time seen: 11/04/22 08:15 Interval history: s/p section post op day 1 flatus not present doing well no complaints Subjective: patient reports feeling better, patient has no complaints and pain is well controlled Exam Const: General: healthy appearing, comfortable and no acute distress Resp: Auscultation: clear to auscultation bilaterally, no rales, no rhonchi and no wheezes Cardio: Rate: regular rate Heart sounds: no click, no murmurs and no rubs GI: Inspection: non-distended Auscultation: normal bowel sounds Extrem: General: normal to inspection, no pedal edema and no calf tenderness PET CARE ASSOCIATE - PN: Obj Data Vital Signs Vital Signs: Vital Signs - 24 hr 11/03/22 20:10 11/03/22 20:00 Temperature 99.1 F Pulse Rate 77 Respiratory Rate 18 Blood Pressure 120/64 Pulse Oximetry 98 Oxygen Delivery Room Air Intake/Output Intake/Output: Intake & Output 11/01/22 11/02/22 11/03/22 11/04/22 23:59 23:59 23:59 23:59 Intake Total 1000 2450 2250 Output Total 1000 1478 3200 Balance 0 972 -950 Meds/Results Medications: Active Medications Generic Name Dose Route Start Last Admin Trade Name Freq PRN Reason Stop Dose Admin Acetaminophen 650 mg 11/02/22 13:03 Acetaminophen 325 Mg Tablet PO Q6H PRN Mild Pain (1-3) Hydrocodone Bitart/Acetaminophen 1 tab 11/02/22 13:03 11/03/22 15:00 Hydrocodone/Acetaminophen (*Crx) 10-325 Mg Tablet PO 1 tab Q3H PRN Administration Pain Rated 7-10 Hydrocodone Bitart/Acetaminophen 1 tab 11/02/22 13:03 11/04/22 07:20 Hydrocodone/Acetaminophen (*Crx) 5-325 Mg Tablet PO 1 tab Q3H PRN Administration Moderate Pain (4-6) Bisacodyl 10 mg 11/02/22 13:03 Bisacodyl 10 Mg Suppository RECTAL ONCE PRN Constipation Docusate Sodium 100 mg 11/02/22 17:00 11/03/22 17:30 Docusate Sodium 100 Mg Capsule PO 100 mg BID FRANTZ Administration Emollient Ointment 1 applic 11/02/22 13:03 Lanolin (Lansinoh) 7.5 Gm Cream TOPICAL PRN PRN Sore Nipples Ibuprofen 600 mg 11/02/22 13:03 11/04/22 07:20 Ibuprofen 600 Mg Tablet PO 600 mg Q6H PRN Administration Cramping Metformin HCl 500 mg 11/03/22 08:00 11/03/22 08:45 Metformin Hcl 500 Mg Tablet PO 500 mg DAILY@0800 [facility] Administration Naloxone HCl 0.1 mg 11/02/22 13:03 Naloxone Hcl 0.4 Mg/Ml Vial IV PUSH Q2M PRN Opiate Reversal Polysaccharide Iron Complex 150 mg 11/02/22 17:00 11/04/22 06:54 Polysaccharide Iron Complex 150 Mg Capsule PO Not Given BIDWM [facility] Vit/Calcium/Iron/Folic Ac 1 tab 11/03/22 09:00 11/03/22 08:45 Multivit/Min/Pren/Fol Ac/Iron Tablet PO 1 tab DAILY FRANTZ Administration Simethicone 80 mg 11/02/22 13:03 11/03/22 17:30 Simethicone 80 Mg Tab.Chew PO 80 mg Q2H PRN Administration Gas Zolpidem Tartrate 5 mg 11/02/22 13:03 Zolpidem Tartrate (*Crx) 5 Mg Tablet PO HS PRN Insomnia Labs 11/03/22 04:20 Labs: Laboratory Results - last 24 hr 11/03/22 11/03/22 11/04/22 08:45 14:46 07:25 POC Capillary Glucose 89 86 116 H
--- NOTE | 2022-11-04 09:00 | PC.NURSE ---
Patient viewed the discharge video Mother & Baby Care, The First Two Weeks . Patient was given the opportunity and encouraged to ask questions. Patient verbalized understanding of information shared and has been given the mother/baby guide for home reference.
[2022-11-04] MEDS: metFORMIN HCL 500 MG TABLET PO (09:14)
[2022-11-04] MEDS: DOCUSATE SODIUM 100 MG CAPSULE PO (09:14)
[2022-11-04] MEDS: POLYSACCHARIDE IRON COMPLEX 150 MG CAPSULE PO (09:14)
[2022-11-04] MEDS: MULTIVIT/MIN/PREN/FOL AC/IRON TABLET 1 TAB PO (09:14)
[2022-11-04] MEDS: TETANUS,DIPHTHERIA,AC PERTUSSIS ADULT (0.5 ML) BOOSTRIX IM (09:15)
[2022-11-04] MEDS: MEASLES,MUMPS,RUBELLA VACCINE 0.5 ML VIAL SUB-Q (09:16)
[2022-11-05 08:08] VITALS: BP 133/77; PULSE 77; RESP 20; TEMP 37.1; O2SAT 100
--- NOTE | 2022-11-07 22:43 | PM.OBTRLD ---
OB - Triage/Final Diagnosis Visit Information Comments/Additional reasons for admission: I have assessed the risk for this patient, Rose Marie, and determined that she would benefit from observation care. Evaluation Laboratory results: Laboratory Tests 10/31/22 10/31/22 10/31/22 17:27 17:53 21:07 WBC 11.0 H RBC 3.61 L Hgb 9.5 L Hct 29.6 L MCV 82.0 MCH 26.3 MCHC 32.1 RDW 13.0 Plt Count 408 H MPV 10.0 Immature Gran % (Auto) 0.5 Neut % (Auto) 72.2 Lymph % (Auto) 20.4 [place] % (Auto) 5.2 Eos % (Auto) 1.3 Baso % (Auto) 0.4 Lymph # (Auto) 2.25 [place] # (Auto) 0.6 Eos # (Auto) 0.1 Baso # (Auto) 0.0 Abs Immat Gran (auto) 0.06 H Absolute Neuts (auto) 8.0 H Absolute Nucleated RBC 0.0 Nucleated RBC % 0.0 POC Capillary Glucose 118 H 136 H RPR Non-reactive Blood Type A Positive Antibody Screen Negative 11/01/22 11/01/22 11/01/22 07:19 10:34 13:25 WBC RBC Hgb Hct MCV MCH MCHC RDW Plt Count MPV Immature Gran % (Auto) Neut % (Auto) Lymph % (Auto) [place] % (Auto) Eos % (Auto) Baso % (Auto) Lymph # (Auto) [place] # (Auto) Eos # (Auto) Baso # (Auto) Abs Immat Gran (auto) Absolute Neuts (auto) Absolute Nucleated RBC Nucleated RBC % POC Capillary Glucose 80 115 H 71 RPR Blood Type Antibody Screen 11/01/22 11/01/22 11/02/22 18:13 21:28 06:27 WBC RBC Hgb Hct MCV MCH MCHC RDW Plt Count MPV Immature Gran % (Auto) Neut % (Auto) Lymph % (Auto) [place] % (Auto) Eos % (Auto) Baso % (Auto) Lymph # (Auto) [place] # (Auto) Eos # (Auto) Baso # (Auto) Abs Immat Gran (auto) Absolute Neuts (auto) Absolute Nucleated RBC Nucleated RBC % POC Capillary Glucose 105 84 70 RPR Blood Type Antibody Screen 11/02/22 11/02/22 11/02/22 15:16 15:18 16:00 WBC RBC Hgb Hct MCV MCH MCHC RDW Plt Count MPV Immature Gran % (Auto) Neut % (Auto) Lymph % (Auto) [place] % (Auto) Eos % (Auto) Baso % (Auto) Lymph # (Auto) [place] # (Auto) Eos # (Auto) Baso # (Auto) Abs Immat Gran (auto) Absolute Neuts (auto) Absolute Nucleated RBC Nucleated RBC % POC Capillary Glucose 47 L* 57 L* 92 RPR Blood Type Antibody Screen 11/03/22 11/03/22 11/03/22 04:20 08:45 14:46 WBC 14.4 H RBC 2.96 L Hgb 8.1 L Hct 24.8 L MCV 83.8 MCH 27.4 MCHC 32.7 RDW 13.3 Plt Count 366 MPV 10.0 Immature Gran % (Auto) 0.8 H Neut % (Auto) 80.1 H Lymph % (Auto) 13.2 L [place] % (Auto) 5.1 Eos % (Auto) 0.5 Baso % (Auto) 0.3 Lymph # (Auto) 1.91 [place] # (Auto) 0.7 H Eos # (Auto) 0.1 Baso # (Auto) 0.0 Abs Immat Gran (auto) 0.11 H Absolute Neuts (auto) 11.6 H Absolute Nucleated RBC 0.0 Nucleated RBC % 0.0 POC Capillary Glucose 89 86 RPR Blood Type Antibody Screen 11/04/22 07:25 WBC RBC Hgb Hct MCV MCH MCHC RDW Plt Count MPV Immature Gran % (Auto) Neut % (Auto) Lymph % (Auto) [place] % (Auto) Eos % (Auto) Baso % (Auto) Lymph # (Auto) [place] # (Auto) Eos # (Auto) Baso # (Auto) Abs Immat Gran (auto) Absolute Neuts (auto) Absolute Nucleated RBC Nucleated RBC % POC Capillary Glucose 116 H RPR Blood Type Antibody Screen Final Diagnosis (1) Gestational diabetes: Code(s): O24.419 - Gestational diabetes mellitus in , unspecified control Status: Acute
--- NOTE | 2022-11-23 22:23 | PM.OBDSVD ---
DS: Admitting Diagnosis Discharge Date 11/04/22 Admitting Diagnosis term DS: Discharge Diagnosis Discharge Diagnosis (1) delivery delivered: Code(s): O82 - Encounter for delivery without indication Status: Acute OB - DS: Summary OB Procedures : None OB Procedures Intrapartum: OB Procedures: : None Peripartum Data Procedures: Procedures Operation Date: 11/02/22 09:00 Actual Procedure Side Surgeon p Section Lily Rajput MD Time Spent with Patient Time attestation: Total time spent providing and/or coordinating discharge services: DS: Data Data Completed and Pending Completed studies during hospitalization: Pending at discharge 11/02/22 09:49 Surgical [PTH] Routine Discharge Plan Discharge Consulting providers: Darlene Vera; Torito Johnson; Gianni Blanchard; Deborah Almanza Discharging Clinician: Lily Rajput Patient Disposition: Home, Self-Care Activity: pelvic rest Diet: regular Discharge Instructions: Education: Mom and Baby Guide Given to: Mother Follow-Up: Call your delivering provider's office for an appointment to be seen in: 4- 6 Weeks Mom and baby should come to the [facility] for the follow-up appointment. Appointment Date/Time: November 05, 2022 at 8:00 am What to expect at your follow-up visit: Blood Pressure Check Physical Assessment Call [phone] if you are unable to keep your appointment time. BREAST CARE: * Wear a snug supportive bra. * For engorgement discomfort: Breast Feeding: * Apply warm moist washcloths * Express milk as needed to relieve engorgement * Wear loose clothing Bottle Feeding: * May apply ice packs * For sore nipples: * Identify correct latch-on * Apply warm moist washcloths before and after nursing * Air dry nipples after nursing * May apply Lansinoh cream to nipples ABDOMINAL INCISION: * Allow incision to air dry * Do NOT use lotions or powders on your incision * When showering, allow soap and water to run over the incision, but do not wash incision PERINEAL CARE: * Until bleeding stops, use your jessica bottle after urinating * Change your pad frequently throughout the day * You may take sitz baths several times a day (fill your bathtub with warm water and soak for 20 minutes.) Do NOT bathe in the water * No tub baths until seen by your physician - You may shower ACTIVITY: * Rest as much as possible. * Do not exercise or lift anything heavier than your baby (such as laundry or other children.) * Avoid stairs or driving as much as possible. * Do not put anything into the vagina. No douching, tampons, or sexual activity until seen by physician. NOTIFY PHYSICIAN IF YOU HAVE ANY QUESTIONS OR IF ANY OF THE FOLLOWING SYMPTOMS OCCUR: * If your incision becomes red, swollen, or more painful than what you have experienced in the hospital. * If your vaginal bleeding becomes foul smelling. * If your vaginal bleeding becomes more heavy than a period or if your bleeding changes from pink to bright red. However, you may pass an occasional walnut-sized clot once or twice for the first week . * If you experience a sharp, shooting pain in your calves. * If you discover a hard, reddened area on your breast or if you experience flu-like symptoms. DIET: * Eat regular, well-balanced meals. * Drink plenty of fluids daily. If , drink to thirst. Stand Alone Forms: General Discharge Information Follow-up/Referrals: Lily Rajput MD [Physician] - Discharge Medications: New oxycodone-acetaminophen 5-325 mg tablet 1 tablet PO Q4H PRN (Reason: pain) Qty: 25 0RF Continued insulin NPH isoph U-100 human 100 unit/mL (3 mL) Insulin Pen 56 unit SUBCUT QACBREAK insulin NPH isoph U-100 human 100 unit/mL (3 mL) Insulin Pen 85 unit SUBC
== END 2022-11-04 11:40 | disposition home or self-care (01) | DRG 540 ==
LOC: ANHLDR 11-02 08:34 → ANHOB2 11-02 12:41
PROVIDERS: Admitting Provider Obstetrics & Gynecology; PCP Emergency Medicine; Visit Provider Obstetrics & Gynecology
PROC: 10D00Z1 Extraction of Products of Conception, Low, Open Approach (ICD-10-PCS; CPT 59514; principal; 2022-11-02 09:00)
DX: O62.0 Primary inadequate contractions (principal); O24.12 Pre-existing type 2 diabetes mellitus, in childbirth; O99.214 Obesity complicating childbirth; E11.65 Type 2 diabetes mellitus with hyperglycemia; O13.4 Gestational [pregnancy-induced] hypertension without significant proteinuria, complicating childbirth; E66.01 Morbid (severe) obesity due to excess calories; Z3A.37 37 weeks gestation of pregnancy; Z37.0 Single live birth; Z79.4 Long term (current) use of insulin
CPT/HCPCS: 36415; 82948; 85025; 86592; 86850; 86900; 86901; 88307; 90710; 90715; A9270; J0456; J0690; J1756; J1815; J2274; J2371; J2590; J3480; J7050; J7120

== ENCOUNTER 2024-11-21 19:50 | Emergency (ER) | payer SELFPAY ==
--- NOTE | ~2024-11-21 | US_ITS ---
EXAM/PROCEDURE: US OB <=14 wk fetus w TV - 11/21/2024 21:00 CDT HISTORY: 29 years old Female with 8 weeks?, bleeding COMPARISON: None available. TECHNIQUE: Multiple transvaginal images were obtained. FINdINGS: There appears to be a single intrauterine gestational sac. There are however 2 yolk sacs and 2 small embryos. The crown-rump length of both infuse is 3.4 and 3.7 mm., Both corresponding to 6 weeks and 0 days. Cardiac activity is not clearly visualized at this time. No evidence of subchorionic hemorrhage. There is no myometrial abnormality. The ovaries appear unremarkable. No significant free fluid is seen. IMPRESSION: Single intrauterine gestational sac with 2 yolk sacs and 2 small embryos. Repeat ultrasound is recommended in 7-10 days to document cardiac activity. Reviewed, dictated and finalized at location N. IMPRESSION: Single intrauterine gestational sac with 2 yolk sacs and 2 small embryos. Repea t ultrasound is recommended in 7-10 days to document cardiac activity.
[2024-11-21 19:57] VITALS: BP 141/86; PULSE 66; RESP 19; O2SAT 100
--- OUTSIDE RECORDS SUMMARY | 2024-11-21 20:22 | XMS_ITS | Clinical Summary ---
Author Organization [facility] Address [address] [place] [address] Care Team Providers Care Cooking Chef Name Role Phone Lai Mesa MD Primary Care Provider [phone] Allergies No known active allergies Medications oxyCODONE (OXY-IR) 5 mg capsule Take 1 capsule (5 mg total) by mouth every 8 (eight) hours as needed (pain) 5 capsule 02/21/20 19 Active Additional Information Patient not taking.Reported on 10/12/2024 nitrofurantoin monohydrate (MACROBID) 100 mg capsule Take 1 capsule (100 mg total) by mouth 2 (two) times a day 10 capsule 06/13/19 25 Active Additional Information Patient not taking.Reported on 10/12/2024 lidocaine (LIDODERM) 5 % Place 1 patch on the skin daily for 12 hours for 7 days Remove & discard patch within 12 hours or as directed by . 7 patch 07/20/19 Active Additional Information Patient not taking.Reported on 10/12/2024 metroNIDAZOLE (METROGEL) 0.75 % (37.5mg/5 gram) vaginal gel USE 1 APPLICATORFUL VAGINALLY ONCE DAILY AT BEDTIME FOR 5 DAYS Active metroNIDAZOLE (FLAGYL) 500 mg tablet Take 1 tablet (500 mg total) by mouth every 12 (twelve) hours for 7 days 08/25/19 25 Active vit D3-vit Z-owqkmwldc-wem s [phone] vffw-gqb-vw-mg tablet Take 500 mcg by mouth once a week Active insulin NPH-insulin regular 70/30 (HumuLIN 70/30,NovoLIN 70/30) 100 unit/mL vial for injection Inject 20 units before breakfast and 16 units before supper 10 mL 10/13/19 25 026 Active Additional Information Patient not taking.Reported on 11/14/2024 insulin syringe-needle U-100 0.5 mL 31 gauge x 5/16 syringe Use to inject insulin twice daily 100 each 10/13/19 25 Active Additional Information Patient not taking.Reported on 11/14/2024 metFORMIN XR (GLUCOPHAGE XR) 500 mg 24 hr tablet Take 1 tablet (500 mg total) by mouth daily 90 tablet 3 10/13/19 25 026 Active Additional Information Patient not taking.Reported on 11/14/2024 blood-glucose meter kit Use daily or as directed for monitoring of diabetes 1 kit 10/13/19 Active Additional Information Patient not taking.Reported on 11/14/2024 lancets misc 100 each by other route as directed Use as directed to check blood sugar twice daily 100 each 10/13/19 25 026 Active Additional Information Patient not taking.Reported on 11/14/2024 blood glucose diagnostic (glucose blood) strip Check blood sugar 2 times a day or as directed 100 each 10/13/19 25 Active Additional Information Patient not taking.Reported on 11/14/2024 vit 78-xiua-ittdf-d su 27mg iron- 800 mcg-250 mg capsule Take 1 tablet by mouth daily Active nitrofurantoin monohydrate (MACROBID) 100 mg capsuleIndicati ons:Urinary Tract/Genitouri nary Infection Take 1 capsule (100 mg total) by mouth 2 (two) times a day Active ketorolac (TORADOL) 10 mg tablet Take 1 tablet (10 mg total) by mouth every 6 (six) hours as needed for pain 20 tablet 06/12/19 25 025 Discontin ued(Thera py completed ) Active Problems Problem Noted Date Diagnosed Date Umbilical hernia without obstruction and without gangrene 01/22/2019 Overview (01/22/2019): Added automatically from request for surgery [id number] Umbilical hernia without obstruction or gangrene 10/19/2018 Estimated Date of Delivery Comme nts Yes 07/02/2025 Based on last me nstrual period of 09/25/2024 (Approximate) Encounters Date Type Department Care Team Description 11/14/2024 6:46 PM CDT - 11/14/2024 8:15 PM CDT Emergency [facility] OB Emergency Department [address] [place] [address] Pepper Castro MD Vaginal bleeding in patient after first trimester (Primary Dx) Discharge Disposition: Discharge to home or self care 11/14/2024 4:48 PM CDT - 11/14/2024 5:31 PM CDT Emergency [address] [address] Discharge Disposition: Left without being seen 10/15/2024 Results [place] [facility] [address] [address] Mariella Vang MA Albumin Creatinine Ratio, Urine 10/12/2024 3:03 PM CDT - 10/12/2024 11:59 PM CDT Hospital Encounter [address] [address] Discharge Disposition: Discharge to home or self care 10/12/2024 2:00 PM CDT Office Visit [facility] [address] [address] Collette Vega MD Type 2 diabetes mellitus without complication, with long-term current use of insulin (HCC) (Primary Dx); Morbid (severe) obesity due to excess calories (E66.01); Body mass index [BMI] 36.0-36.9, adult (Z68.36) 10/12/2024 Orders Only [facility] [address] [address] Tea Menchaca MD 10/11/2024 Telephone [facility] [address] [address] Collette Vega MD Appointment Reminder Call from Last 3 Months Medical History Medical History Date Comments Ectopic Hyperglycemia Diabetes mellitus (HCC) Family History Medical History Relation Name Comments Diabetes Maternal Grandfather Nephrolithiasis Mother Relation Name Status Comments Maternal Grandfather Mother Social History Tobacco Use Types Packs/Day Years Used Date Smoking Tobacco: Never Smokeless Tobacco: Never Alcohol Use Standard Drinks/Week Comments Never 0 (1 standard drink = 0.6 oz pur e alcohol) PHQ-2 Answer Date Recorded PHQ-2 Total Score (If total score is 3 or more points, staff should administer the PHQ-9) 0 10/12/2024 AUDIT-C Answer Date Recorded Q1: How often do you have a drink containing alcohol? Never 11/14/2024 Q2: How many drinks containi ng alcohol do you have on a typical day when you are drinking? Patient does not drink Q3: How often do you have si x or more drinks on one occasion? Never 11/14/2024 Personal Safety Answer Date Recorded Have you ever been in or are you currently in a harmful physical or emotional relationship or is someone making you feel afraid or unsafe? Denies 11/14/2024 Estimated Date of Delivery Comme nts Yes 07/02/2025 Based on last me nstrual period of 09/25/2024 (Approximate) Sex and Gender Information Value Date Recorded Sex Assigned at Not on file Legal Sex Female 7:46 PM [employer]SE[employer] Gender Identity Not on file Sexual Orientation Not on file Obstetrics History Para Term AB IAB SAB Ectopic Multiple Livin g Live Births 3 1 1 1 1 Date Outcome GA Total Labor Labor/2nd/3rd Weight Sex Type Anes PTL Trinidad A1 A5 Name Clin Para Ectopic Current Summary Episode Dates Number of Fetuses Estimated Date of Delivery 11/14/2024 - Present (11/21/2024) 07/02/2025 (set by Vandana Johnson, RN on 11/14/2024 based on Last Menstrual Period on 09/25/2024 (Approximate)) Dating Summary Based On AMARJIT GA Diff Last Menstrual Period on 09/25/2024 (Approximate ) 07/02/2025 Working Vitals Pregravid Weight Height TWG (As of 11/21/2024) Pregrav id BMI 175.3 cm (5' 9) Date GA Fund Present FHR Mvmt BP Weight Edema Alb Glu Ket Dil/ Eff/Sta 5 7w1d Inpatient data not displayed here. See encounter summary. Last Filed Vital Signs Vital Sign Reading Time Taken Comments Blood Pressure 127/78 11/14/2024 7:08 PM CDT Pulse 73 11/14/2024 7:08 PM CDT Temperature 36.8 C (98.2 F) 11/14/2024 6:51 PM CDT Respiratory Rate 18 11/14/2024 6:51 PM CDT Oxygen Saturation 100% 11/14/2024 6:51 PM CDT Inhaled Oxygen Concentration - - Weight 110.2 kg (243 lb) 11/14/2024 6:51 PM CDT Height 175.3 cm (5' 9) 11/14/2024 6:51 PM CDT Body Mass Index 35.88 11/14/2024 6:51 PM CDT Plan of Treatment Health Maintenance Due Date Last Done Comments Cervical Cancer Screening 1993 Hepatitis C Screening 1993 Dilated Eye Exam 1993 Varicella Vaccines (1 of 2 - 13+ 2-dose series) 2006 Regular Well Visit/Exam 18-64 09/21/2011 Pneumococcal vaccine <65 (1 of 2 - PCV) 2012 DTaP/Tdap/Td Vaccine (7 - Td or Tdap) 12/08/2016 12/08/2006, 10/11/1997, 10/18/1995, Additional history exists Influenza Vaccine (#1) 2024 12/24/2010, 2006 Hemoglobin A1C 03/24/2025 09/21/2024 Lipid Panel 09/21/2025 09/21/2024, 09/21/2024 eGFR 09/21/2025 09/21/2024, 09/2024, 12/14/2023, Additional history exists Albumin Creatinine Ratio, Urine 10/12/2025 Depression Screening 10/12/2025 10/12/2024 Foot Exam 10/12/2025 10/12/2024 Hepatitis B Screening Completed 03/16/2001 , 12/12/2000, 11/10/2000 HPV Vaccines Completed 06/26/2007, 1205/2006, 12/08/2006 Procedures Procedure Name Priority Date/Time Associated Diagnosis Comments VAGINITIS PANEL Routine 11/14/2024 7:19 PM CDT N. GONORRHOEAE/C. TRACHOMATIS AMPLIFICATION STAT 11/14/2024 7:19 PM CDT DIFFERENTIAL AUTO STAT 11/14/2024 7:1 0 PM CDT HCG, BLOOD, QUANTITATIVE STAT 11/14/2024 7:10 PM CDT CBC WITH AUTO DIFFERENTIAL STAT 11/14/2024 7:10 PM CDT POCT HCG, URINE Routine 11/14/2024 6:40 PM CDT ALBUMIN CREATININE RATIO, URINE Routine 10/12/2024 3:03 PM CDT POCT GLUCOSE Routine 10/12/2024 2:13 PM CDT Type 2 diabetes mellitus without complication, with long-term current use of insulin (HCC) HEMOGLOBIN A1C Routine 09/21/2024 11:44 AM CDT VITAMIN D 25 HYDROXY Routine 09/21/2024 11:44 AM CDT COMPREHENSIVE METABOLIC PANEL Routine 09/21/2024 11:44 AM CDT LIPID PANEL Routine 09/21/2024 11:44 AM CDT TSH+FREE T4 Routine 09/21/2024 11:44 AM CDT from Last 3 Months Results * N. gonorrhoeae/C. trachomatis Amplification Endocervical (11/14/2024 7:19 PM CDT) C. trachomatis Not Detected Not Detected Comment:Testing performed by : [facility], [address] [place] [address], [place]., [address] N. gonorrhoeae Not Detected Not Detected ADALBERTO WARD Comment: Interpretive Data This assay detects Chlamydia trachomatis and Neisseria gonorrhoeae by nucleic acid amplification testing (NAAT). This assay has been cleared by the [place] Food and Drug administration. The performance characteristics of this test have been verified by the [facility]. The performance characteristics of this test have not been evaluated in individuals less than 14 years of age. Current Interpretive Data last revised 2023. Testing performed by: [address] [address] Endocervical (None) 11/15/19 7:19 PM CDT 11/14/2024 7:25 PM CDT us Faustino Hardin MD LAB MICROBIOLOGY - GENERAL ORDERABLES Final Result ADALBERTO [address] [facility] Department [place] [address] * (ABNORMAL) Vaginitis panel Vaginal (11/14/2024 7:19 PM CDT) Bacterial Vaginosis Detected(A) Not Detected Comment: The BV organism targets of this test can be commensal in women; results should be considered in conjunction with clinical presentation to determine the disease status. Testing performed by: [address] [address] Dana group Not Detected Not Detected ADALBERTO Comment:Testing performed by : [address] [address] Dana glabrata/ krusei Not Detected Not Detected ADAL[facility]ERTO Comment:Testing performed by : [address] [address] Trichomonas DNA Not Detected Not Detected ADALBERTO Comment:Testing performed by : [address] [address] Vaginal 11/14/2024 7:19 PM CDT 11/14/2024 7:25 PM CDT Narrative ADALBERTO WARD - 11/14/2024 8:27 PM CDT The [employer] Xpert Xpress MVP test detects DNA targets from anaerobic bacteria associated with bacterial vaginosis, Dana species associated with vulvovaginal candidiasis, and Trichomonas vaginalis by nucleic acid amplification testing (NAAT). Results should be interpreted in conjunction with other clinical data. This test cannot be used to assess therapeutic success or failure because target nucleic acids may persist following antimicrobial therapy. This test has been cleared by the [place] Food and Drug Administration to aid in the diagnosis of vaginal infections in symptomatic women ages 14 and older. The performance characteristics of this test have been verified by the [facility]. The [employer] Xpert Xpress MVP test detects DNA targets from anaerobic bacteria associated with bacterial vaginosis, Dana species associated with vulvovaginal candidiasis, and Trichomonas vaginalis by nucleic acid amplification testing (NAAT). Results should be interpreted in conjunction with other clinical data. This test cannot be used to assess therapeutic success or failure because target nucleic acids may persist following antimicrobial therapy. This test has been cleared by the [place] Food and Drug Administration to aid in the diagnosis of vaginal infections in symptomatic women ages 14 and older. The performance characteristics of this test have been verified by the [facility]. Faustino Hardin MD LAB MICROBIOLOGY - GENERAL ORDERABLES Final Result [facility] [address] [facility] Department [place] [address] * Differential, auto (11/14/2024 7:10 PM CDT) Neutrophil abs 3.88 1.50 - 6.50 K/cumm Comment:Testing performed by : [address] [address] Imm gran abs 0.02 0.00 - 0.10 K/cumm ADALBERTO Comment:Testing performed by : [address] [address] Lymphocyte abs 2.44 0.80 - 3.30 K/cumm ADALBERTO Comment:Testing performed by : [address] [address] Monocyte abs 0.36 0.20 - 0.80 K/cumm ADALBERTO Comment:Testing performed by : [address] [address] Eosinophil abs 0.10 0.00 - 0.50 K/cumm ADALBERTO Comment:Testing performed by : [address] [address] Basophil abs 0.02 0.00 - 0.10 K/cumm ADALBERTO Comment:Testing performed by : [address] [address] Neutrophil pct 56.8 % [facility] Comment: Interpretive Data Percent cell count reference ranges are not reported, since discordance with absolute values may lead to misinterpretation of CBC data. Current Interpretive Data was last revised on 2017. Testing performed by: [address] [address] Imm gran pct 0.3 % [facility] Comment: Interpretive Data Percent cell count reference ranges are not reported, since discordance with absolute values may lead to misinterpretation of CBC data. Current Interpretive Data was last revised on 2017. Testing performed by: [address] [address] Lymphocyte pct 35.8 % [facility] Comment: Interpretive Data Percent cell count reference ranges are not reported, since discordance with absolute values may lead to misinterpretation of CBC data. Current Interpretive Data was last revised on 2017. Testing performed by: [address] [address] Monocyte pct 5.3 % [facility] Comment: Interpretive Data Percent cell count reference ranges are not reported, since discordance with absolute values may lead to misinterpretation of CBC data. Current Interpretive Data was last revised on 2017. Testing performed by: [address] [address] Eosinophil pct 1.5 % [facility] Comment: Interpretive Data Percent cell count reference ranges are not reported, since discordance with absolute values may lead to misinterpretation of CBC data. Current Interpretive Data was last revised on 2017. Testing performed by: [address] [address] Basophil pct 0.3 % [facility] Comment: Interpretive Data Percent cell count reference ranges are not reported, since discordance with absolute values may lead to misinterpretation of CBC data. Current Interpretive Data was last revised on 2017. Testing performed by: [address] [address] Blood 11/14/2024 7:10 PM CDT 11/14/2024 7:23 PM CDT us Faustino Hardin MD LAB BLOOD ORDERABLES Final Result [facility] [address] [facility] Department [place] [address] * CBC with auto differential (11/14/2024 7:10 PM CDT) WBC 6.82 3.80 - 9.90 K/cumm Comment:Testing performed by : [address] [address] Hgb 12.3 11.9 - 15.5 g/dL ADALBERTO Comment:Testing performed by : [address] [address] Hct 36.7 35.6 - 45.5 % ADALBERTO Comment:Testing performed by : [address] [address] Plt 322 150 - 400 K/cumm ADALBERTO Comment:Testing performed by : [address] [address] MPV 9.5 9.1 - 12.3 fL AD[facility]ERTO Comment:Testing performed by : [address] [address] RBC 4.46 3.90 - 5.20 M/cumm ADALBERTO Comment:Testing performed by : [address] [address] MCV 82.3 81.3 - 96.4 fL ADALBEROT Comment:Testing performed by : [address] [address] MCH 27.6 27.1 - 33.3 pg ADALBERTO WARD Comment:Testing performed by : [address] [address] MCHC 33.5 32.3 - 35.7 g/dL ADALBERTO Comment:Testing performed by : [address] [address] RDW CV 12.5 11.1 - 14.9 % ADALBERTO WARD Comment:Testing performed by : [address] [address] RDW SD 37.3 35.7 - 48.1 fL ADALBERTO WARD Comment:Testing performed by : [address] [address] NRBC abs 0.00 0.00 - 0.01 K/cumm ADALBERTO WARD Comment:Testing performed by : [address] [address] Blood 11/14/2024 7:10 PM CDT 11/14/2024 7:23 PM CDT Faustino Hardin MD LAB BLOOD ORDERABLES Final Result Performing Organization Address [facility] Co de Phone Number [address] [employer] [place], [place] [id number] * (ABNORMAL) hCG, blood, quantitative (11/14/2024 7:10 PM CDT) [facility] hCG, quant 3,885.0(H ) 0.0 - 5.0 IUnits/L Comment: Interpretive Data Male: < 5 IU/L Non- premenopausal Female: <5 IU/L The [employer] hCG Beta Quant assay procedure was used. Results from different manufacturers or methods may not be comparable. Serial testing should be performed using the same method. Interpretive Data was last revised on 2023 Testing performed by: [address] [address] Blood 11/14/2024 7:10 PM CDT 11/14/2024 7:23 PM CDT Faustino Hardin MD LAB BLOOD ORDERABLES Final Result Performing Organization Address [facility] Co de Phone Number [address] [place] [address] * (ABNORMAL) POCT hCG, urine (11/14/2024 6:40 PM CDT) Pathologist [facility] HCG, ur, POC Positive(A ) Negative Comment:Testing performed by : [facility], [address] [place] [address], [place]., [address] Urine 11/14/2024 6:40 PM CDT 11/14/2024 6:40 PM CDT Notinfile Unknown LAB POCT ORDERABLES - DEVICE F inal Result Performing Organization Address City/[facility]/ZIP Co de Phone Number ADALBERTO [address] [facility] Department [place] [address] * Albumin Creatinine Ratio, Urine (10/12/2024 3:03 PM CDT) [facility] Albumin Ur 12.9 mg/L Comment: Interpretive Data No reference range established. Current interpretive data was last revised 2018. Creatinine Ur 68.9 mg/dL [facility] Comment: Interpretive Data No reference range established. Current interpretive data was last revised 2018. Albumin Creatinine Ratio, Ur 19 1 - 29 mg/g [facility] Urine 10/12/2024 3:03 PM CDT 10/12/2024 4:41 PM CDT Result [facility] Collette Vega MD LAB URINE ORDERABLES Final Resul t Performing Organization Address [facility] Co de Phone Number ADALBERTO [address] [facility] Department [place] [address] * POCT glucose (10/12/2024 2:13 PM CDT) [facility] Glucose Blood, POC 336 Normal Fasting 70 - 100, Random <200 mg/dL Blood 10/12/2024 2:13 PM CDT Result [facility] Collette Vega MD POINT OF CARE TEST ORDERABLES Fi nal Result * TSH+Free T4 (09/21/2024 11:44 AM CDT) [facility] Scribed TSH 2.58 0.30 - 5.33 mcU/mL EXTERNAL LAB Blood Result [facility] Historical Provider MD LAB BLOOD ORDERABLES Edit ed Result - Final Performing Organization Address [facility] de Phone Number EXTERNAL LAB * (ABNORMAL) Vitamin D 25 hydroxy (09/21/2024 11:44 AM CDT) SCRIBED 25-OH Vitamin D 12.6(A) 30.0 - 100.0 ng/mL EXTERNAL LAB Blood Result [facility] Provider MD LAB BLOOD ORDERABLES Edit ed Result - Final Performing Organization Address [facility] de Phone Number EXTERNAL LAB * (ABNORMAL) Hemoglobin A1c (09/21/2024 11:44 AM CDT) SCRIBED Hemoglobin A1c 10.4(A) 4.0 - 5.6 % EXTERNAL LAB Blood Result [facility] Provider MD LAB BLOOD ORDERABLES Edit ed Result - Final Performing Organization Address [facility] de Phone Number EXTERNAL LAB * (ABNORMAL) Lipid panel (09/21/2024 11:44 AM CDT) SCRIBED Cholesterol, Total 173 30 - 199 mg/dL EXTERNAL LAB SCRIBED Triglycerides 557(A) <=149 mg/dL EXTERNAL LAB SCRIBED HDL 33(A) >=40 mg/dL EXTERNAL LAB SCRIBED LDL 0 <=129 mg/dL EXTERNAL LAB Scribed Non-HDL Cholesterol 140 NONE mg/dL EXTERNAL LAB SCRIBED Total Cholesterol/HDL Ratio 5 NONE EXTERNAL LAB Blood Result [facility] Provider MD LAB BLOOD ORDERABLES Edit ed Result - Final Performing Organization Address [facility] Co de Phone Number EXTERNAL LAB * (ABNORMAL) Comprehensive metabolic panel (09/21/2024 11:44 AM CDT) SCRIBED Sodium 134 133 - 146 mmol/L EXTERNAL LAB SCRIBED Potassium 4.2 3.5 - 5.1 mmol/L EXTERNAL LAB SCRIBED Chloride 100 98 - 107 mmol/L EXTERNAL LAB SCRIBED Carbon Dioxide 23 21 - 31 mmol/L EXTERNAL LAB SCRIBED Anion Gap 11 4 - 13 mmol/L EXTERNAL LAB SCRIBED Urea Nitrogen (BUN) 16 7 - 25 mg/dl EXTERNAL LAB SCRIBED Creatinine 0.66 0.60 - 1.30 mg/dl EXTERNAL LAB SCRIBED Glucose 276(A) 70 - 100 mg/dl EXTERNAL LAB SCRIBED Calcium 9.1 8.3 - 10.5 mg/dl EXTERNAL LAB SCRIBED Bilirubin 0.5 0.2 - 1.2 mg/dl EXTERNAL LAB SCRIBED Plasma Protein 7.3 6.4 - 8.3 g/dl EXTERNAL LAB SCRIBED Albumin 4.2 3.5 - 5.0 g/dl EXTERNAL LAB SCRIBED Alkaline Phosphatase 58 34 - 104 Units/L EXTERNAL LAB SCRIBED Alanine Transaminase (ALT) 16 9 - 43 Units/L EXTERNAL LAB SCRIBED Aspartate Transaminase (AST) 11(A) 13 - 39 Units/L EXTERNAL LAB SCRIBED eGFR >90 > - 60 EXTERNAL LAB Blood us Historical Provider LAB BLOOD ORDERABLES Edit ed Result - Final EXTERNAL LAB from Last 3 Months Insurance [facility] Care Teams Cooking Chef Relationship Specialty Start Date End Date Lai Mesa MD PCP - General Emergency Medicine 12/14/21
--- OUTSIDE RECORDS SUMMARY | 2024-11-21 20:22 | XMS_ITS | Encounter Summary ---
Author Organization [facility] Health Address [address] [place] [address] Care Team Providers Care Application Developer Manager Name Role Phone Unavailable Primary Care Provider Unavailabl e Reason for Visit * Reason Onset Date Comments LABS ONLY 05/17/2022 Encounter Details Date Type Department Care Team (Late st Contact Info) Description 05/17/2022 Telephone [facility] [address] [place] [address] Bronson Desouza MD [address] [facility] [address] [place] [address] LABS ONLY Social History Tobacco Use Types Packs/Day Years Used Date Smoking Tobacco: Never Alcohol Use Standard Drinks/Week Comments Not Currently 0 (1 standard drink = 0.6 oz pur e alcohol) Comments Yes Sex and Gender Information Value Date Recorded Sex Assigned at Not on file Legal Sex Female 6:43 AM [employer] Gender Identity Not on file Sexual Orientation Not on file documented as of this encounter Miscellaneous Notes * Telephone Encounter - Loretta Bergman - 05/17/2022 2:14 PM CDT Sil[facility] from [facility] called because she needs clarification on order for protein urine timed test they need to know does Dr. Desouza want a 24 hour test or was he wanting to do something different if so please fax new orders to [phone]. Thank You Loretta CB:[phone] documented in this encounter Plan of Treatment Not on file documented as of this encounter Visit Diagnoses Not on filedocumented in this encounter
[2024-11-21 20:42] LABS: Hematocrit 37.4 % (37.0-47.0); Hemoglobin 12.1 g/dL (12.0-15.0); Immature Granulocyte Percent A 0.2 % (0-0.5); Lymphocytes Absolute Auto 2.77 K/mm3 (0.9-3.2); Mean Corpuscular HGB Conc 32.4 g/dl (32-36); Mean Corpuscular Hemoglobin 27.8 pg (26-34); Mean Corpuscular Volume 86.0 fl (80-100); Nucleated Red Blood Cells Absolute Auto 0.000 K/mm3 (0.0-0.012); Nucleated Red Blood Cells Perc 0.0 % (0.0-0.2); Platelet Count Result 336 k/mm3 (150-375); Red Blood Count 4.35 M/mm3 (4.2-5.4); White Blood Count 8.2 K/mm3 (4.5-10.0)
[2024-11-21 20:52] LABS: Alanine Aminotransferase 23 U/L (6-35); Albumin Level 4.0 g/dL (3.5-5.1); Alkaline Phosphatase 64 U/L (38-126); Anion Gap 7 mmol/L (4-12); Aspartate Amino Transferase 24 U/L (14-36); Bilirubin,Total 0.3 mg/dL (0.2-1.3); Blood Urea Nitrogen 16 mg/dL (7-17); Calcium 8.7 mg/dL (8.4-10.2); Carbon Dioxide 24 mmol/L (22-30); Chloride 101 mmol/L (98-107); Estimated CRCL calculation 146 ml/min; Estimated Glomerular Filt Rate > 60; Glucose 287 mg/dL (65-110); Potassium 3.9 mmol/L (3.4-5.0); Sodium 132 mmol/L (137-145); Total Protein 7.3 g/dL (6.3-8.2)
[2024-11-21 20:58] LABS: INR 1.1; Partial Thromboplastin Time 25.3 Seconds (22.3-36.8); Prothrombin Time 13.7 Seconds (11.1-14.7)
[2024-11-21 21:04] LABS: BEDSIDEPREGUCG Positive (Negative)
[2024-11-21 21:09] LABS: Beta HCG Quantitative 6737.30 mIU/ML
[2024-11-21 21:22] LABS: Add Urine Microscopic? YES; Appearance Urine Cloudy (Clear); Glucose Urine UA 3+ mg/dL (Negative); Leukocyte Esterase Ur Negative LEU/UL (Negative); Nitrate Urine Negative (Negative); Non Pathogenic Casts 0-2; Specific Grav Ur > 1.045 (1.001-1.035)
--- NOTE | 2024-11-21 21:25 | ED.PREGNANCY ---
HPI - General Chief complaint: Vaginal Bleeding Stated complaint: vaginal bleeding Time Seen by Provider: 11/21/24 20:15 Source: patient Mode of arrival: ambulatory Limitations: no limitations History of Present Illness HPI Narrative: Patient is a 29-year-old female who presents the ED with report of vaginal bleeding. Patient reports she is currently . Last normal menstrual cycle was September 25. She typically has regular cycles. This makes her . She has been seeing Dr. Rajput. Reports she had an US a couple weeks ago which showed 8 week gestation, however more recently US appeared more like 5 weeks, with possible twins. Patient reports he has been having vaginal spotting for the past 2 weeks, however bleeding became heavier today with clots. She denies significant pain. Denies urinary complaints. Related Data Home Medications ?Medication ?Instructions ?Recorded ?Confirmed ?Last Taken ?Type aspirin 81 mg tablet 81 mg PO DAILY 10/22/22 10/31/22 10/31/22 History insulin lispro 100 unit/mL 32 unit subcut QACBREAK 10/22/22 10/31/22 10/31/22 History subcutaneous pen vit 24-iron amino acid 1 tablet PO DAILY 10/22/22 10/31/22 10/31/22 History chelat-folic acid 30 mg-975 mcg tablet insulin NPH isoph U-100 human 100 56 unit subcut QACBREAK 10/27/22 10/31/22 10/31/22 History unit/mL (3 mL) subcutaneous pen insulin NPH isoph U-100 human 100 85 unit subcut HS 10/27/22 10/31/22 10/30/22 History unit/mL (3 mL) subcutaneous pen insulin lispro 100 unit/mL 36 unit subcut QACLUNCH 10/27/22 10/31/22 10/31/22 History subcutaneous pen insulin lispro 100 unit/mL 72 unit subcut QACDINNER 10/27/22 10/31/22 10/30/22 History subcutaneous pen Allergies Allergy/AdvReac Type Severity Reaction Status Date / Time No Known Allergies Allergy Verified 11/21/24 20:02 Review of Systems Review of Systems: All systems reviewed & are unremarkable except as noted in HPI. All systems reviewed & are unremarkable except as noted in HPI and below PMFSH Past Medical History Medical History and not yet delivered Diabetes in Morbid obesity Family History Family History Grandparent Diabetes mellitus Enlarged heart Sibling Asthma Sibling Asthma Grandparent Malignant neoplasm of prostate Social History Social History Smoking status: Never smoker Substance use: never Lack of Transportation: No Lack of Food: Never True Current Housing: I Have Housing Concerned About Future Housing: No Difficulty Paying Gas/Electric Bills: No Difficulty Paying for Meds: No Currently Unemployed: YES Education: High School Diploma/GED Difficulty w/ Childcare or Family Care: No Spiritual care concerns: No Exam Narrative: GENERAL: Well appearing, obese with BMI of 35.9, non-toxic, in no acute distress. HEAD: Normocephalic, atraumatic. RESPIRATORY: Airway patent, respirations nonlabored. Clear to auscultation bilaterally, no rales, rhonchi, wheezing. CARDIOVASCULAR: Regular rate and rhythm without murmurs, rubs, or gallops. ABDOMINAL: Soft, no significant tenderness, nondistended. Normoactive BS. PELVIC: Normal external genitalia. Moderate amount of dark red vaginal blood in vault, small dime-sized clots present. No hemorrhage or pooling of fluid. Cervix appears unremarkable. MUSCULOSKELETAL: Moves all extremities. No gross deformities. SKIN: Warm, dry, normal color. NEURO: A&O X3. Speech clear. PSYCHIATRIC: Appropriate mood and affect. Normal interaction. Course Vital Signs Vital signs: Vital Signs Pulse Rate 66 11/21/24 19:57 Respiratory Rate 19 11/21/24 19:57 Blood Pressure 141/86 H 11/21/24 19:57 Pulse Oximetry 100 11/21/24 19:57 Pulse Rate 88 11/22/24 01:54 Respiratory Rate 18 11/22/24 01:54 Blood Pressure 133/76 11/22/24 01:54 Pulse Oximetry 100 11/22/24 01:54 MDM - OB/Uterine Contractions MDM Narrative Medical decision making narrative: Patient presented to ED with vaginal bleeding, currently , unclear gestational age. . Vital signs stable upon arrival. Patient in no acute distress. Cbc without leukocytosis or anemia. H&H is stable. CMP fairly unremarkable. Blood glucose is mildly elevated to 287. Patient does have history of diabetes. No evidence of DKA. Beta hCG today is 6737. No records in our system to compare to. Patient did report she was seen at an outside hospital in [place] last week and her hcg level was around 350 at that time. UA with evidence of dehydration and blood, no signs of infection. Patient's blood type is A positive, no indication for RhoGAM. Patient did pass some large blood clots in the ED, some did appear tissue-like but no obvious passage of sac-like structure. Pelvic exam w/ some clots but no evidence of hemorrhage. Ob ultrasound was obtained and showing single intrauterine gestational sac with 2 yolk sacs and 2 small embryos. Corresponding to 6 weeks based on crown-rump length. Discussed case with MILAN Mcallister, advised repeat hormone level on Tuesday and will see patient in office that day. Patient is in agreement this plan. Advised to continue to monitor bleeding. Discussed bleeding precautions, strict return precautions. Patient voiced understanding. Discharged in stable condition. Medical Records Attestation: I reviewed the patient's medical records. Lab Data Attestation: I reviewed the patient's lab results. 11/21/24 20:36 11/21/24 20:36 Labs: Lab Results 11/21/24 11/21/24 11/21/24 Range/Units 20:36 20:57 21:00 WBC 8.2 (4.5-10.0) K/mm3 RBC 4.35 (4.2-5.4) M/mm3 Hgb 12.1 D (12.0-15.0) g/dL Hct 37.4 (37.0-47.0) % MCV 86.0 (80-100) fl MCH 27.8 (26-34) pg MCHC 32.4 (32-36) g/dl RDW 12.4 (11.5-14.5) % Plt Count 336 (150-375) k/mm3 MPV 9.4 (7.4-10.4) fl Immature Gran % (Auto) 0.2 (0-0.5) % Neut % (Auto) 57.7 (45.5-73.1) % Lymph % (Auto) 33.8 (18.3-44.2) % [place] % (Auto) 5.9 (2.6-8.5) % Eos % (Auto) 1.8 (0-4.4) % Baso % (Auto) 0.6 (0.2-1.2) % Lymph # (Auto) 2.77 (0.9-3.2) K/mm3 [place] # (Auto) 0.5 (0.1-0.6) K/mm3 Eos # (Auto) 0.2 (0-0.3) K/mm3 Baso # (Auto) 0.1 (0.0-0.1) K/mm3 Abs Immat Gran (auto) 0.02 (0.00-0.031) K/mm3 Absolute Neuts (auto) 4.7 (1.3-6.7) K/mm3 Absolute Nucleated RBC 0.000 (0.0-0.012) K/mm3 Nucleated RBC % 0.0 (0.0-0.2) % PT 13.7 (11.1-14.7) Seconds INR 1.1 APTT 25.3 (22.3-36.8) Seconds Sodium 132 L (137-145) mmol/L Potassium 3.9 (3.4-5.0) mmol/L Chloride 101 (98-107) mmol/L Carbon Dioxide 24 (22-30) mmol/L Anion Gap 7 (4-12) mmol/L BUN 16 (7-17) mg/dL Creatinine 0.63 L (0.7-1.0) mg/dL Estim Creat Clear Calc 146 ml/min Estimated GFR > 60 (59 - ) Glucose 287 H (65-110) mg/dL Calcium 8.7 (8.4-10.2) mg/dL Total Bilirubin 0.3 (0.2-1.3) mg/dL AST 24 (14-36) U/L ALT 23 (6-35) U/L Alkaline Phosphatase 64 (38-126) U/L Total Protein 7.3 (6.3-8.2) g/dL Albumin 4.0 (3.5-5.1) g/dL Beta HCG, Quant 6737.30 mIU/ML Urine Color Yellow (Yellow) Urine Appearance Cloudy H (Clear) Urine pH 5.0 (5.0-9.0) Ur Specific [place] > 1.045 H (1.001-1.035) Urine Protein 1+ H (Negative) mg/dL Urine Glucose (UA) 3+ H (Negative) mg/dL Urine Ketones 1+ H (Negative) mg/dL Ur Blood (Man) 3+ H (Negative) Urine Nitrate Negative (Negative) Urine Bilirubin Negative (Negative) Urine Urobilinogen 0.2 (<2.0) mg/dL Leukocyte Esterase Rfl Negative (Negative) DANIELLE/UL Urine RBC >100 H (0-2) /hpf Urine WBC 0-5 (0-3) /hpf Ur Squamous Epith Cells Occasional (Few) /hpf Urine Bacteria None seen /hpf Urine Casts 0-2 POC Urine HCG, Qual Positive (Negative) Blood Type A Positive Antibody Screen Negative Screen TNP Baby's Blood Type Not Reportable Baby's WILY Not Reportable Doses of RhIg Required 0 Imaging Data Attestation: I personally reviewed and interpreted this imaging study as follows: Radiologist's impression: STAT RAD OB US: Impression: There appears to be a single intrauterine gestational sac. There are however two yolk sacs and two small embryos. [place]-rump length both embryos is 3.4-3.7 mm, both corresponding to 6 weeks 0 days. Cardiac activity is not clearly identified at this time. No evidence of subchorionic hemorrhage. Both ovaries are identified and of normal size. Blood flow is documented in the left ovary. No adnexal mass or free fluid. Discharge Plan Discharge Clinical Impression: Threatened , Twin gestation in first trimester Patient Disposition: Home Condition: Stable Instructions: Antibiotic Form, Threatened Miscarriage (ED), Abnormal (Dysfunctional) Uterine Bleeding (ED) Additional Instructions: Obtain repeat hormone level on Tuesday. Follow-up with OBGYN on Tuesday. Dr. Rajput is aware of your ED visit and would like to see in the office on Tuesday. Call office today () to confirm appointment. Continue to monitor bleeding. Return to the ED if you experience severe pain, severe bleeding (saturating through pad in less than 1 hour for 3 consecutive hours), fevers, unable to keep down food or drink, dizziness/lightheadedness, or any other symptoms of concern. Patient Language: Spanish Prescriptions: No Action insulin NPH isoph U-100 human 100 unit/mL (3 mL) Insulin Pen 56 unit SUBCUT QACBREAK insulin NPH isoph U-100 human 100 unit/mL (3 mL) Insulin Pen 85 unit SUBCUT HS insulin lispro 100 unit/mL insulin pen 36 unit SUBCUT QACLUNCH insulin lispro 100 unit/mL insulin pen 72 unit SUBCUT QACDINNER aspirin 81 mg Tablet 81 mg PO DAILY insulin lispro 100 unit/mL Insulin Pen 32 unit SUBCUT QACBREAK PNV [id number] 30-975 mg-mcg Tablet 1 tablet PO DAILY oxycodone-acetaminophen 5-325 mg tablet 1 tablet PO Q4H PRN (Reason: pain) Qty: 25 0RF Other Ambulatory Orders: Beta HCG Quantitative (Routine) Timeframe: 20241123 Location: Determined by Patient Ordered By: Kavita Chatman Follow-up/Referrals: James Rajput MD [Physician, [facility] [employer]] Referral Note: Lai Erickson MD [Primary Care Provider, [facility]] Time of Disposition: 01:39
[2024-11-21 21:30] VITALS: BP 141/78; PULSE 71; O2SAT 99
[2024-11-21] MEDS: SODIUM CHLORIDE 0.9% IV 1,000 ML 999 ML IV CONT (22:04)
[2024-11-22 01:54] VITALS: BP 133/76; PULSE 88; RESP 18; O2SAT 100
== END 2024-11-22 01:55 | disposition home or self-care (01) ==
PROVIDERS: Emergency Provider Physician Assistant; PCP Emergency Medicine
DX: O20.0 Threatened abortion (principal); O30.001 Twin pregnancy, unspecified number of placenta and unspecified number of amniotic sacs, first trimester; O24.111 Pre-existing type 2 diabetes mellitus, in pregnancy, first trimester; E11.8 Type 2 diabetes mellitus with unspecified complications; O99.211 Obesity complicating pregnancy, first trimester; E66.9 Obesity, unspecified; Z3A.01 Less than 8 weeks gestation of pregnancy; Z79.4 Long term (current) use of insulin; Z79.82 Long term (current) use of aspirin
CPT/HCPCS: 36415; 76801; 76817; 80053; 81001; 81025; 84702; 85025; 85461; 85610; 85730; 86850; 86900; 86901; 96360; 99284; J7030